=== PATIENT | male | born 1955 | race Caucasian/White ===

== ENCOUNTER 2020-10-09 13:56 | Observation (INO) | payer OTHER ==
[2020-10-09] MEDS ORDERED: LIDOCAINE VISCOUS 2% SOLN 15 ML UDC ONE (15:44)
[2020-10-09 16:04] LABS: Absolute Lymphocytes (CBC) 1.5 K/uL (0.7-4.9); Basophils % 0.8 % (0-1.3); Hematocrit 43.9 % (39.6-49.0); Lymphocytes % 10.2 % (15.3-44.8); MPV 7.2 fL (7.6-11.3)
[2020-10-09] MEDS ORDERED: MORPHINE 4 MG/ML SYR ONE ×2 (16:15→17:40)
[2020-10-09] MEDS ORDERED: ONDANSETRON 4 MG/2 ML VIAL ONE (16:16)
[2020-10-09 16:21] LABS: Albumin 3.5 g/dL (3.4-5.0); Bilirubin Direct 0.2 mg/dL (0-0.2); Bilirubin Total 0.5 mg/dL (0.2-1.0); Potassium 3.7 mmol/L (3.5-5.1); Protein, Total 8.1 g/dL (6.4-8.2)
--- NOTE | 2020-10-09 17:19 | RAD REPORT ---
EXAM DESCRIPTION: CT - Abdomen Pelvis W Contrast - 10/09/2020 4:28 pm CLINICAL HISTORY: rectal pain COMPARISON: <Comparisons> TECHNIQUE: Biphasic, helical CT imaging of the abdomen and pelvis was performed following 100 ml non -ionic IV contrast. Oral contrast was given. All CT scans are performed using dose optimization technique as appropriate and may include automated exposure control or mA/KV adjustment according to patient size. FINDINGS: No suspicious findings in the lung bases. The liver, spleen, and pancreas show no suspicious findings. Liver attenuation is borderline fatty in filtration. Gallbladder and biliary tree are also without suspicious finding. Symmetric renal function is seen with no hydronephrosis or suspicious renal mass. No pyelonephritis o r acute parenchymal process. No bladder abnormalities. No adrenal abnormalities. No stomach or small bowel abnormality. No appendicitis findings. From cecum through the proximal rect um no significant finding noted. Minimal diverticulosis is present. Circumferential distal rectal wal l thickening is present primarily along the posterior wall. Stranding and edema are seen in the perir ectal fatty tissues. In the posterior perianal soft tissues there is a 3 centimeter sized low-density collection. Finding is suspicious for perirectal abscess and can be correlated with clinical present ation. No free air, free fluid or pneumatosis. No other area of inflammatory stranding seen. No mass or bul ky lymphadenopathy. A very small periumbilical hernia present. Disc and bone degenerative changes are present. No acute bone findings seen. IMPRESSION: Circumferential wall thickening and adjacent stranding in the distal rectum with a 3 shar timeter low-density collection along the posterior distal most rectum/ anus region. Findings are suspicious for a perirectal abscess associated with proctitis. Posterior perianal low-de nsity collection is greater than typically seen for hemorrhoids. Malignant etiology for the rectal wall thickening is unlikely but not entirely excluded on CT criteri a.
--- NOTE | 2020-10-09 17:37 | ER ---
Nurse's Notes [facility] Name: Saleem Cannon Age: 64 yrs Sex: Male : 1955 Arrival Date: 10/09/2020 Time: 13:59 Bed 28 Private MD: Spike Steele V Diagnosis: Perirectal Abscess Presentation: 10/09 14:31 Chief complaint: Patient states: rectal pain since 1 week, Dr. Steele called in em hydrocortisone cream for hemorrhoids, reports pain is worse. Coronavirus screen: Client denies travel out of the [place] in the last 14 days. Ebola Screen: Patient negative for fever greater than or equal to 101.5 degrees Fahrenheit, and additional compatible Ebola Virus Disease symptoms Patient denies exposure to infectious person. Patient denies travel to an Ebola-affected area in the 21 days before illness onset. No symptoms or risks identified at this time. Initial Sepsis Screen: Does the patient meet any 2 criteria? HR > 90 bpm. Does the patient have a suspected source of infection? No. Patient's initial sepsis screen is negative. Risk Assessment: Do you want to hurt yourself or someone else? Patient reports no desire to harm self or others. Onset of symptoms was October 09, 2020. 14:31 Method Of Arrival: Ambulatory em 14:31 Acuity: YENI 3 em Historical: - Allergies: 14:37 No Known Allergies; em - PMHx: 14:37 prostate cancer; em - PSHx: 14:37 prostatectomy; em - Immunization history:: Adult Immunizations up to date. - Social history:: Smoking status: Patient denies any tobacco usage or history of. Screenin:08 Abuse screen: Denies threats or abuse. Nutritional screening: No deficits noted. jd3 Tuberculosis screening: No symptoms or risk factors identified. Fall Risk Ambulatory Aid- None/Bed Rest/Nurse Assist (0 pts). Gait- Normal/Bed Rest/Wheelchair (0 pts) Mental Status- Oriented to own ability (0 pts). Total Briggs Fall Scale indicates No Risk (0-24 pts). Assessment: 16:06 General: Appears in no apparent distress. uncomfortable, Behavior is calm, cooperative, jd3 appropriate for age. Pain: Complains of pain in rectal pain Quality of pain is described as pressure, sharp, tender. Neuro: Level of Consciousness is awake, alert, obeys commands, Oriented to person, place, time, situation. Cardiovascular: Denies chest pain, Capillary refill < 3 seconds Patient's skin is warm and dry. Respiratory: Airway is patent Respiratory effort is even, unlabored, Respiratory pattern is regular, symmetrical, Denies cough, shortness of breath. GI: Abdomen is round non-distended, Abd is soft and non tender X 4 quads. Reports rectal pain. : No signs and/or symptoms were reported regarding the genitourinary system. EENT: No signs and/or symptoms were reported regarding the EENT system. Derm: Skin is intact, Skin is dry, Skin is normal, Skin temperature is warm. Musculoskeletal: Circulation, motion, and sensation intact. Range of motion: intact in all extremities. 17:30 Reassessment: Patient appears in no apparent distress at this time. No changes from [facility] previously documented assessment. Patient and/or family updated on plan of care and expected duration. Pain level reassessed. Patient is alert, oriented x 3, equal unlabored respirations, skin warm/dry/pink. pt reporting pain medication worked, but pain is coming back. 18:52 Reassessment: Patient appears in no apparent distress at this time. Patient and/or jd3 family updated on plan of care and expected duration. Pain level reassessed. Patient is alert, oriented x 3, equal unlabored respirations, skin warm/dry/pink. awaiting admission. 20:00 Reassessment: Patient appears in no apparent distress at this time. Patient and/or jd3 family updated on plan of care and expected duration. Pain level reassessed. Patient is alert, oriented x 3, equal unlabored respirations, skin warm/dry/pink. Patient states feeling better. Vital Signs: 14:31 BP 135 / 103; Pulse 98; Resp 18; Temp 98.4; Pulse Ox 100% on R/A; Weight 83.91 kg; em Height 5 ft. 7 in. (170.18 cm); Pain 8/10; 17:31 BP 126 / 73; Pulse 77; Resp 17 S; Pulse Ox 100% on R/A; jd3 18:51 BP 107 / 72; Pulse 70; Resp 16 S; Pulse Ox 100% on R/A; jd3 19:59 BP 120 / 82; Pulse 73; Resp 17 S; Pulse Ox 97% on R/A; jd3 14:31 Body Mass Index 28.97 (83.91 kg, 170.18 cm) em ED Course: 13:59 Patient arrived in ED. ag5 13:59 Spike Steele MD is Private Physician. ag5 14:35 Triage completed. em 14:37 Arm band placed on. em 15:14 George Vaughn PA is PHCP. [facility] 15:14 Beau Ashford MD is Attending Physician. [facility] 15:27 Ceferino Bay, SHEY is Primary Nurse. jd3 15:45 Inserted saline lock: 20 gauge in left antecubital area, using aseptic technique. Blood jd3 collected. 16:08 Patient has correct armband on for positive identification. Placed in gown. Bed in low jd3 position. Call light in reach. Side rails up X2. Pulse ox on. NIBP on. 16:28 CT Abd/Pelvis - IV Contrast Only In Process Unspecified. EDMS 17:34 Spike Steele MD is Hospitalizing Provider. [facility] 18:46 COVID-19 Sent. [facility] 19:59 No provider procedures requiring assistance completed. Patient admitted, IV remains in jd3 place. Administered Medications: 15:47 Drug: Viscous Lidocaine Liquid (4 %) 10 ml Route: Mucous Membrane; jd3 16:05 Follow up: Response: No adverse reaction jd3 16:40 Follow up: Response: No adverse reaction jd3 15:47 Not Given (Patient Refused): morphine 4 mg IVP once; RASS on ADMIN: Combtv4, Very jd3 Agttd3, Agttd2, Rstlss1, AlertClm0, Drwsy-1, Lt Sdtn-2, Mod Sdtn-3, Dp Sdtn-4, UnArsble-5 15:47 Not Given (Patient Refused): Zofran (Ondansetron) 4 mg IVP once; over 2 minutes jd3 16:05 Drug: morphine 4 mg Route: IVP; Site: left antecubital; jd3 17:00 Follow up: Response: No adverse reaction; RASS: Alert and Calm (0) jd3 16:05 Drug: Zofran (Ondansetron) 4 mg Route: IVP; Site: left antecubital; jd3 17:00 Follow up: Response: No adverse reaction jd3 17:32 Drug: morphine 4 mg Route: IVP; Site: left antecubital; jd3 18:04 Follow up: Response: No adverse reaction; RASS: Alert and Calm (0) jd3 17:52 Drug: Flagyl 500 mg Volume: 100 ml; Route: IVPB; Rate: 200 ml/hr; Infused Over: 30 jd3 mins; Site: left antecubital; 18:25 Follow up: Response: No adverse reaction; IV Status: Completed infusion; IV Intake: jd3 100ml 18:25 Drug: LevaQUIN 750 mg Volume: 150 ml; Route: IVPB; Infused Over: 90 mins; Site: left jd3 antecubital; 20:02 Follow up: Response: No adverse reaction; IV Status: Completed infusion; IV Intake: jd3 150ml Intake: 18:25 IV: 100ml; Total: 100ml. jd3 20:02 IV: 150ml; Total: 250ml. stefanie Outcome: 17:36 Decision to Hospitalize by Provider. hiro 20:01 Admitted to Med/surg accompanied by tech, via stretcher, room 403, with chart, Report jd3 called to Camrel KAT 20:01 Condition: stable 20:01 Instructed on the need for admit, Demonstrated understanding of instructions. 20:10 Patient left the ED. stefanie Signatures: Dispatcher [employer] George Ortega PA PA jmm Munoz, Edgar, RN Olga Ayers [facility] Ceferino Bay RN RN jd3 Gaskin, Ajare [facility]
--- NOTE | 2020-10-09 17:37 | EDPHYS ---
Physician Documentation [facility] Name: Saleem Cannon Age: 64 yrs Sex: Male : 1955 Arrival Date: 10/09/2020 Time: 13:59 Bed 28 Private MD: Spike Steele V ED Physician Beau Ashford HPI: 10/09 15:34 This 64 yrs old Male presents to ER via Ambulatory with complaints of Rectal jmm Pain. 15:34 The patient presents to the emergency department with pain in the rectal area. Onset: jmm The symptoms/episode began/occurred gradually. Modifying factors: The symptoms are alleviated by sitz baths. Associate signs and symptoms: Pertinent negatives: fever. This is a 64 year old male with a history of prostate cancer that presents to the ED with complaints of rectal pain beginning approx 1 week ago. Patient was prescribed rectal steroids with no relief. patient states he does get some relief with sitz baths. Denies fever, abdominal pain. . Historical: - Allergies: 14:37 No Known Allergies; em - PMHx: 14:37 prostate cancer; em - PSHx: 14:37 prostatectomy; em - Immunization history:: Adult Immunizations up to date. - Social history:: Smoking status: Patient denies any tobacco usage or history of. ROS: 15:34 Constitutional: Negative for fever, chills, and weight loss, Cardiovascular: Negative jmm for chest pain, palpitations, and edema, Respiratory: Negative for shortness of breath, cough, wheezing, and pleuritic chest pain. 15:34 Abdomen/GI: Positive for rectal pain. 15:34 All other systems are negative. Exam: 15:34 Constitutional: This is a well developed, well nourished patient who is awake, alert, jmm and in no acute distress. Head/Face: atraumatic. Eyes: EOMI, no conjunctival erythema appreciated ENT: Moist Mucus Membranes Neck: Trachea midline, Supple Chest/axilla: Normal chest wall appearance and motion. Cardiovascular: Regular rate and rhythm. No edema appreciated Respiratory: Normal respirations, no respiratory distress appreciated 15:34 Skin: General appearance color normal MS/ Extremity: Moves all extremities, no obvious deformities appreciated, no edema noted to the lower extremities Neuro: Awake and alert, normal gait Psych: Behavior is normal, Mood is normal, Patient is cooperative and pleasant 15:34 Abdomen/GI: Rectal exam: mass, is not appreciated, swelling, that is mild, tenderness, that is moderate. Vital Signs: 14:31 BP 135 / 103; Pulse 98; Resp 18; Temp 98.4; Pulse Ox 100% on R/A; Weight 83.91 kg; em Height 5 ft. 7 in. (170.18 cm); Pain 8/10; 17:31 BP 126 / 73; Pulse 77; Resp 17 S; Pulse Ox 100% on R/A; jd3 18:51 BP 107 / 72; Pulse 70; Resp 16 S; Pulse Ox 100% on R/A; jd3 19:59 BP 120 / 82; Pulse 73; Resp 17 S; Pulse Ox 97% on R/A; jd3 14:31 Body Mass Index 28.97 (83.91 kg, 170.18 cm) em MDM: 15:17 Patient medically screened. [facility] 17:33 Data reviewed: vital signs, nurses notes. Counseling: I had a detailed discussion with [facility] the patient and/or guardian regarding: the historical points, exam findings, and any diagnostic results supporting the discharge/admit diagnosis, lab results, radiology results, the need for further work-up and treatment in the hospital. ED course: I discussed the patient with Dr. Steele and Dr. keyes whom will consult on the patient's admission. . 10/09 15:27 Order name: Basic Metabolic Panel; Complete Time: 16:23 [facility] 10/09 15:27 Order name: CBC with Diff; Complete Time: 16:30 [facility] 10/09 15:27 Order name: Hepatic Function; Complete Time: 16:23 [facility] 10/09 15:27 Order name: Lipase; Complete Time: 16:23 [facility] 10/09 17:53 Order name: Basic Metabolic Panel [facility] 10/09 17:53 Order name: Basic Metabolic Panel [facility] 10/09 15:28 Order name: CT Abd/Pelvis - IV Contrast Only; Complete Time: 17:21 [facility] 10/09 17:53 Order name: CBC with Automated Diff [facility] 10/09 17:53 Order name: CBC with Automated Diff [facility] 10/09 17:53 Order name: Lipase [facility] 10/09 17:53 Order name: Lipase [facility] 10/09 17:53 Order name: Liver (Hepatic) Function [facility] 10/09 17:53 Order name: Liver (Hepatic) Function [facility] 10/09 17:54 Order name: COVID-19 [facility] 10/09 15:14 Order name: Gown patient; Complete Time: 15:23 [facility] 10/09 15:27 Order name: IV Saline Lock; Complete Time: 15:47 [facility] 10/09 15:27 Order name: Labs collected and sent; Complete Time: 15:47 [facility] 10/09 17:53 Order name: Dr Joe Keyes [facility] 10/09 17:53 Order name: NPO [facility] Administered Medications: 15:47 Drug: Viscous Lidocaine Liquid (4 %) 10 ml Route: Mucous Membrane; jd3 16:05 Follow up: Response: No adverse reaction jd3 16:40 Follow up: Response: No adverse reaction jd3 15:47 Not Given (Patient Refused): morphine 4 mg IVP once; RASS on ADMIN: Combtv4, Very jd3 Agttd3, Agttd2, Rstlss1, AlertClm0, Drwsy-1, Lt Sdtn-2, Mod Sdtn-3, Dp Sdtn-4, UnArsble-5 15:47 Not Given (Patient Refused): Zofran (Ondansetron) 4 mg IVP once; over 2 minutes jd3 16:05 Drug: morphine 4 mg Route: IVP; Site: left antecubital; jd3 17:00 Follow up: Response: No adverse reaction; RASS: Alert and Calm (0) jd3 16:05 Drug: Zofran (Ondansetron) 4 mg Route: IVP; Site: left antecubital; jd3 17:00 Follow up: Response: No adverse reaction jd3 17:32 Drug: morphine 4 mg Route: IVP; Site: left antecubital; jd3 18:04 Follow up: Response: No adverse reaction; RASS: Alert and Calm (0) jd3 17:52 Drug: Flagyl 500 mg Volume: 100 ml; Route: IVPB; Rate: 200 ml/hr; Infused Over: 30 jd3 mins; Site: left antecubital; 18:25 Follow up: Response: No adverse reaction; IV Status: Completed infusion; IV Intake: jd3 100ml 18:25 Drug: LevaQUIN 750 mg Volume: 150 ml; Route: IVPB; Infused Over: 90 mins; Site: left jd3 antecubital; 20:02 Follow up: Response: No adverse reaction; IV Status: Completed infusion; IV Intake: jd3 150ml Disposition: 17:33 Chart complete. [facility] Disposition: 10/09/20 17:36 Hospitalization ordered by Spike Steele for Observation. Preliminary diagnosis is Perirectal Abscess. - Bed requested for Telemetry/MedSurg (observation). - Status is Observation. jd3 - Condition is Stable. - Problem is new. - Symptoms are unchanged. Addendum: 10/11/2020 17:42 Co-signature as Attending Physician, Beau Ashford MD I agree with the assessment and k dr plan of care. Signatures: Dispatcher [employer] [facility] Beau Ashford MD MD kdr Mickail, Joel, PA PA jmm Munoz, Edgar, RN RN em Jared Keyes em1 Ceferino Bay RN RN jd3 Corrections: (The following items were deleted from the chart) 10/09 18:42 17:36 Hospitalization Ordered by Spike Steele MD for Observation. Preliminary diagnosis em1 is Perirectal Abscess. Bed requested for Telemetry/MedSurg (observation). Status is Observation. Condition is Stable. Problem is new. Symptoms are unchanged. [facility] 20:10 18:42 10/09/2020 17:36 Hospitalization Ordered by Spike Steele MD for Observation. jd3 Preliminary diagnosis is Perirectal Abscess. Bed requested for Telemetry/MedSurg (observation). Status is Observation. Condition is Stable. Problem is new. Symptoms are unchanged. em1
[2020-10-09] MEDS ORDERED: ONDANSETRON 4 MG/2 ML VIAL IV PRN (17:50)
[2020-10-09] MEDS ORDERED: ACETAMINOPHEN 500 MG TAB PO PRN (17:50)
[2020-10-09] MEDS ORDERED: METRONIDAZOLE 500mg IVPB 500 MG/100 ML BAG IV ONE (18:00)
[2020-10-09] MEDS ORDERED: D5 0.45 NS 1,000 ML IV SCH (18:00)
[2020-10-09] MEDS ORDERED: Levofloxacin 750mg IV 750 MG/150 ML BAG IV SCH (19:00)
[2020-10-09] MEDS: D5 0.45 NS 1,000 ML IV SCH (20:53)
[2020-10-09 21:35] VITALS: BMI 29.0
[2020-10-09] MEDS: MORPHINE 4 MG/ML SYR IV PRN (21:56)
[2020-10-10] MEDS: METRONIDAZOLE 500mg IVPB 500 MG/100 ML BAG IV SCH ×3 (00:26→16:00)
[2020-10-10 05:14] LABS: Absolute Lymphocytes (CBC) 1.7 K/uL (0.7-4.9); Basophils % 0.5 % (0-1.3); Hematocrit 39.4 % (39.6-49.0); Lymphocytes % 11.8 % (15.3-44.8); RBC Red Blood Cell Count 4.53 M/uL (4.33-5.43)
[2020-10-10 05:28] LABS: Albumin 3.1 g/dL (3.4-5.0); Bilirubin Direct 0.1 mg/dL (0-0.2); Bilirubin Total 0.5 mg/dL (0.2-1.0); Potassium 3.7 mmol/L (3.5-5.1); Protein, Total 7.1 g/dL (6.4-8.2)
[2020-10-10 07:38] LABS: Platelet Estimate ADEQ
[2020-10-10] MEDS: CIPROFLOXACIN 400mg IV 400 MG/200 ML BAG IV SCH ×2 (07:49→21:24)
[2020-10-10] MEDS: ENOXAPARIN 40 MG/0.4 ML SQ SCH (07:50)
[2020-10-10] MEDS ORDERED: CHOLECALCIFEROL 400 UNIT PO SCH (09:00)
[2020-10-10] MEDS ORDERED: HOME MED 1 EA UNK (Ascorbic Acid [Vitamin C] 1,000 MG Tablet) PO SCH (09:00)
[2020-10-10] MEDS ORDERED: HOME MED 1 EA UNK (Zinc [Zinc] 50 MG Tablet) PO SCH (09:00)
[2020-10-10] MEDS ORDERED: Ringers Lactate 1,000 ML IV ONE (09:59)
[2020-10-10] MEDS ORDERED: SCOPOLAMINE HYDROBROMIDE PATCH TD ONE ×2 (09:59→10:00)
[2020-10-10] MEDS ORDERED: SUCCINYLCHOLINE 20 MG/ML (10 ML) IV ONE (10:04)
[2020-10-10] MEDS ORDERED: FENTANYL CITR 100 MCG/2 ML ONE ×2 (10:07→10:53)
[2020-10-10] MEDS ORDERED: propofoL 200 MG/20 ML VIAL IV ONE (10:07)
[2020-10-10] MEDS ORDERED: MIDAZOLAM HCL 2 MG/2 ML INJ ONE (10:07)
--- NOTE | 2020-10-10 11:01 | CON ---
Date of Consultation: 10/10/2020 Diagnosis: Perirectal abscess. History Of Present Illness: This is a case of a 64-year-old patient, who has been complaining of a r ectal pain and perianal pain for the last week, getting worse last night. It was getting worse. He was sent by the ER physician to the ER, admitted and imaging done, showing perirectal abscess. He de nies any trauma. He stated the pain and bulging grew gradually. It is over the entire perianal josué on, very tender. Allergies: NONE. Past Medical History: History of prostate cancer. Urinary retention to the point that last night he said that he could not urinate, showed large amount of volume on the ultrasound, but finally this mo rning he urinated a little bit. Past Surgical History: Prostatectomy. Family History: Unremarkable. Review of Systems: Ten points otherwise unremarkable. Physical Examination: General: Patient is awake, alert. HEENT: Pupils equal, reactive, anicteric. Neck: Supple. Chest: Clear. Abdomen: Soft and depressible. Rectum: Anal area difficult to examine. It is very tender on the side anterior and posterior. We a re going to have to leave the examination to be done under anesthesia. Extremities: Good capillary refill. Laboratory Data: Blood work shows WBC count of 15 with hemoglobin of 14.8 and platelets of 353. Sod ium is 139, chloride is 108. Lipase 75. CAT scan of the abdomen and pelvis interpreted by Dr. Knox ll as circumferential wall thickening with adjacent stranding of the rectum with a 3 cm low-density c ollection along the posterior distal most rectum. Findings suspicious for perirectal abscess. Assessment: This is a 64-year-old patient with perirectal abscess. He has history of a prostate can cer, although malignancy cannot be ruled out. The Radiology believe this is just an abscess, so we a re going to do examination under anesthesia, anoscopy, proctoscopy, incision and drainage of perirect al abscess. The benefits, alternatives, and risks fully explained, which include, but not limited to infection, bleeding, damage to adjacent structures, anesthesia complication, nonhealing wound, ND, a nd even . He also understood this may not relieve the symptoms. He might need more than one of our surgical intervention. He understands the importance of colonoscopies. We are going to suggest that to him as a formal workup of his bowel if it has not been done recently. This may require woun d care. The family fully aware. The patient few weeks ago, Dr. Camarena told me, was positive for COVID, and the OR and hospital were fully aware. MARK/ADRIEL Voice ID: [id number] Report ID: [id number]
[2020-10-10] MEDS ORDERED: ONDANSETRON 4 MG/2 ML VIAL IV ONE (11:05)
[2020-10-10] MEDS ORDERED: HYDROCODONE/APAP 5/325 MG TAB PO PRN (11:09)
[2020-10-10] MEDS ORDERED: KETOROLAC 30 MG/ML INJ IV ONE (11:15)
[2020-10-10] MEDS ORDERED: ONDANSETRON 4 MG/2 ML VIAL ONE (11:16)
[2020-10-10] MEDS: D5 0.45 NS 1,000 ML IV SCH (11:43)
--- NOTE | 2020-10-10 12:25 | P.SSS ---
Patient History Date of Service: 10/10/20 Reason for admission: SEVERE RECTAL PAIN History of Present Illness: KEVEN IS A HEALTHY GM WHO HAS HAD HEMORROIDES, HE FOR ONEEDAY HAD SEVERE RECTAL PAIN LIKE KNIEF PIERCING THROUGH THE RECTUM. HE CAME TO ER. HE ALSO HAD COVID INFECTION ABOUT 3 WEEKS AGO BUT HAS NO SYMPTOMS AND STAYS POSITIVE IN HIS TEST. DR. HUDSON DID SURGERY TODAY , THERE IS 1 CM INCISION. THERE WAS SOME PUS TAKEN OUT. HE MAY BE ABLE TO GO HOME IN AM. HE IS ON OBSERVATION HERE. Allergies No Known Allergies Allergy (Unverified 10/09/20 18:41) Home Medications: Ascorbic Acid [Vitamin C] 1,000 mg PO DAILY 10/09/20 Cholecalciferol (Vitamin D3) [Vitamin D 400 IU TAB] 800 unit PO DAILY 10/09/20 Zinc 50 mg PO DAILY 10/09/20 - Past Medical/Surgical History Has patient received pneumonia vaccine in the past: No Diabetic: No -: Prostate CA -: Prostectomy - Social History Smoking Status: Never smoker Alcohol use: No CD- Drugs: No Caffeine use: Yes Place of Residence: Home Review of Systems 10-point ROS is otherwise unremarkable Physical Examination - Vital Signs Temperature: 97.0 F Blood Pressure: 149/79 Pulse: 63 Respirations: 18 Pulse Ox (%): 96 - Physical Exam General: Oriented x3, Moderate distress HEENT: Atraumatic, PERRLA, Mucous membr. moist/pink, EOMI, Sclerae nonicteric Neck: Supple, 2+ carotid pulse no bruit, No LAD, Without JVD or thyroid abnormality Respiratory: Clear to auscultation bilaterally, Normal air movement Cardiovascular: Regular rate/rhythm, Normal S1 S2 Gastrointestinal: Normal bowel sounds, No tenderness Musculoskeletal: No tenderness Integumentary: No rashes Neurological: Normal gait, Normal speech, Normal strength at 5/5 x4 extr, Normal tone, Normal affect Lymphatics: No axilla or inguinal lymphadenopathy - Studies Laboratory Data (last 24 hrs) 10/09/20 15:42: WBC 15.0 H, Hgb 14.8, Hct 43.9, Plt Count 353 10/09/20 15:42: Sodium 139, Potassium 3.7, BUN 16, Creatinine 1.16, Glucose 114 H, Total Bilirubin 0.5, AST 13 L, ALT 26, Alkaline Phosphatase 96, Lipase 75 - Diagnosis (Problem(s)) (1) Radha-rectal abscess Current Visit: Yes Status: Acute Plan: DR. MOJICA DID SURGERY. CIPRO AND FLAGYL IV SHOULD HELP. HE CAN GO HOME IN AM AFTER A DAY OF IV ABX. HOME HEALTH WILL BE CALLED IN. - Disposition Disposition: ROUTINE DISCHARGE
--- NOTE | 2020-10-10 12:46 | OP ---
Date of Procedure: 10/10/2020 Surgeon: Reymundo Morin MD Inspector Subassembly: None. Preoperative Diagnoses: Perirectal abscess, history of prostate cancer, urinary retention. Postoperative Diagnoses: Perirectal abscess, history of prostate cancer, urinary retention, internal and external hemorrhoids. Procedures: Examination under anesthesia, anoscopy, rigid proctoscopy, incision and drainage of margarette rectal abscess. Anesthesia: General plus local. Findings: Posterior rectal abscess. Indications: This is a case of a 64-year-old patient comes to the hospital after having fullness and pain over perianal region, described to have perirectal abscess on imaging, admitted to the hospital and started on IV antibiotics. Surgical consult was obtained. The benefits, alternatives, and risk s of EUA, anoscopy, proctoscopy, I and D of perirectal abscess fully explained to the patient, which include, but not limited to infection, bleeding, damage to adjacent structures, anesthesia complicati on, anal stricture, incontinence, [place], and even . He also understands this may not relieve any s ymptoms. He might need more than one surgical intervention. He understands he might require wound c are. He signed a consent. Patient had urinary retention last night. He could not urinate and imagi ng shows much of urine. He refused to have a Little placed because he does not like it, but he will a llow to put a Little here in the OR under anesthesia. We are going to proceed like that, not just for the benefit of the surgical intervention, but also to relieve his urinary retention. He has history of prostate cancer. We encouraged him to find some attention for that to make sure there are no str ictures there. Description Of Procedure: The patient was brought to the operating room, placed in supine position. Anesthesia was done without complication. A time-out was called. The patient was placed in lithoto my position with proper protection. Rectal examination was done after prepping the area in usual koko rile fashion. Rigid proctoscopy was done all the way to about 7 cm. We could not advance anymore be cause there was a large amount of rectum in that area. We did not see any fistulous coming in or any tumors in the perirectal region once again limited by the amount of stools patient has present. We palpated an area, but it looked like it is easier access through outside the perianal region, so we p ut an 18-gauge needle in that area, find the center of that abscess. Anoscopy helped us with that ta sk. Once we found the center of the abscess, we proceeded to make an incision, protected the anal sp linter. We allowed to have a large amount of pus, at least 40 cc of pus coming out. The area was pr ofusely irrigated. Loculations were explored, opened with finger and then after that, obtained hemos tasis and put local anesthetic and packed the area with a quarter of an inch iodoform. Patient geronimo ated the procedure well. Sterile dressings placed over the area. Sponge count, instrument counts co rrect. Patient was sent to Recovery in stable condition. MARK/ADRIEL Voice ID: [id number] Report ID: [id number]
[2020-10-11] MEDS: METRONIDAZOLE 500mg IVPB 500 MG/100 ML BAG IV SCH ×2 (00:15→07:27)
[2020-10-11] MEDS: D5 0.45 NS 1,000 ML IV SCH (00:15)
[2020-10-11] MEDS: CIPROFLOXACIN 400mg IV 400 MG/200 ML BAG IV SCH (07:27)
[2020-10-11] MEDS: ENOXAPARIN 40 MG/0.4 ML SQ SCH (07:28)
[2020-10-11] MEDS ORDERED: ASCORBIC ACID 1000 MG PO SCH (09:00)
[2020-10-11] MEDS ORDERED: Zinc [Zinc] 50 MG Tablet PO SCH (09:00)
[2020-10-11] MEDS ORDERED: CHOLECALCIFEROL 400 UNIT PO SCH (09:00)
[2020-10-11 09:53] VITALS: O2SAT 94
[2020-10-11] MEDS: MORPHINE 4 MG/ML SYR IV PRN (10:54)
[2020-10-11 10:59] VITALS: BP 124/71; TEMP 97.8
== END 2020-10-11 12:18 | disposition home health service (06) ==
LOC: ER 13:56 → ERHOLD 17:49 → 4TH 20:03
PROVIDERS: ADMIT Internal Medicine; ATTEND Internal Medicine
PROC: 0DJD8ZZ Inspection of Lower Intestinal Tract, Via Natural or Artificial Opening Endoscopic (ICD-10-PCS; 2020-10-10)
PROC: 0D9P3ZZ Drainage of Rectum, Percutaneous Approach (ICD-10-PCS; principal; 2020-10-10 10:00)
DX: K61.1 Rectal abscess (principal); Z85.46 Personal history of malignant neoplasm of prostate; R33.9 Retention of urine, unspecified; K64.9 Unspecified hemorrhoids; K64.4 Residual hemorrhoidal skin tags; Z86.19 Personal history of other infectious and parasitic diseases
CPT/HCPCS: 96365; 96367; 87070; 85025 ×2; 80048 ×2; 36415; 87205; 85049; 80076 ×2; 87185; 87075; 83690 ×2; 74177; 94010; 96375; 99285; 46040; U0003; Q9967; J2704; J1650; J2250; J3010 ×2; J7799 ×3; J7120; J2405 ×4; J0744 ×3; G0378; J0330